=== PATIENT | male | born 1965 | race Caucasian/White ===

== ENCOUNTER 2023-02-12 12:41 | Emergency (ER) | payer OTHER ==
[2023-02-12] MEDS ORDERED: Tenecteplase 50 MG Kit ONE (12:54)
[2023-02-12] MEDS ORDERED: Metoprolol Tartrate 5 MG/5 ML SDV IVPUSH ONE (12:57)
[2023-02-12 13:13] LABS: BASOPHILS ABSOLUTE AUTO 0.08 K/mm3 (0.01-0.08); BASOPHILS PERCENT AUTO 0.5 % (0.1-1.2); EOSINOPHILS ABSOLUTE AUTO 0.12 K/mm3 (0.04-0.54); EOSINOPHILS PERCENT AUTO 0.8 (0.8-7.0); HEMATOCRIT 52.1 % (40.1-51.0); IMMATURE GRAN ABSOLUTE AUTO 0.07 K/mm3 (0.00-0.10); IMMATURE GRAN PERCENT AUTO 0.5 % (<=1.0); LYMPHOCYTES ABSOLUTE AUTO 2.72 K/mm3 (1.32-3.57); LYMPHOCYTES PERCENT AUTO 18.2 % (21.8-53.1); MEAN CORPUSCULAR HEMOGLOBIN 26.7 pg (25.7-32.2); MEAN CORPUSCULAR HGB CONC 32.6 g/dl (32.2-35.5); MEAN CORPUSCULAR VOLUME 81.9 fl (79.0-92.2); MEAN PLATELET VOLUME 10.1 fl (9.4-12.3); MONOCYTES ABSOLUTE AUTO 0.98 K/mm3 (0.30-0.82); MONOCYTES PERCENT AUTO 6.6 % (5.3-12.2); NEUTROPHILS ABSOLUTE AUTO 10.96 K/mm3 (1.78-5.38); NEUTROPHILS PERCENT AUTO 73.4 % (34.0-67.9); PLATELET COUNT,PLT 270 K/mm3 (163-337); RED BLOOD CELL COUNT 6.36 M/mm3 (4.63-6.08); WHITE BLOOD CELL COUNT,WBC 14.93 K/mm3 (4.23-9.07)
[2023-02-12 13:27] LABS: PROTHROMBIN TIME 10.7 SECONDS (9.7-12.0)
[2023-02-12 13:29] LABS: PTT,PARTIAL THROMBOPLSTIN TIME 23.7 SECONDS (21.7-31.4)
[2023-02-12 13:37] LABS: D-DIMER QUANTITATIVE 1.12 mg/L (0.19-0.50)
[2023-02-12 13:38] LABS: A/G RATIO 1.2 (1-2); ALANINE AMINOTRANSFERASE,ALT 156 U/L (16-63); ALBUMIN 3.9 g/dl (3.4-5.0); ALKALINE PHOSPHATASE 68 U/L (46-116); ANION GAP 20.5 (5-15); ASPARTATE AMNIOTRANSFERASE,AST 121 U/L (15-37); BILIRUBIN TOTAL 0.6 mg/dL (0.2-1.0); BLOOD UREA NITROGEN,BUN 21 mg/dL (7-18); BUN/CREATININE RATIO 17.5 (14-18); CALCIUM 8.9 mg/dL (8.5-10.1); CARBON DIOXIDE,CO2 18 mEq/L (21-32); CHLORIDE,CL 104 mEq/L (98-107); CREATININE 1.2 mg/dL (0.7-1.3); ESTIMATED GFR 70 mL/min (>60); GLUCOSE RANDOM 201 mg/dL (70-99); PROTEIN TOTAL,TP 7.3 g/dl (6.4-8.2); SODIUM,NA 139 mEq/L (136-145); TROPONIN I HIGH SENSITIVITY 38 pg/mL (<=76)
[2023-02-12 13:40] LABS: POTASSIUM,K 3.5 mEq/L (3.5-5.1)
== END 2023-02-12 13:22 ==
LOC: JD.ED 12:41
DX: I21.09 ST elevation (STEMI) myocardial infarction involving other coronary artery of anterior wall (principal); Z72.0 Tobacco use
CPT/HCPCS: 36415; 71045; 80053; 83880; 84484; 85025; 85379; 85610; 85730; 93005; 96374; 99285; J3490; 93010